=== PATIENT | female | born 1965 | race Caucasian/White ===

== ENCOUNTER → 2016-09-13 | Outpatient (CLI) | payer MEDICARE ==
[~2016-09-13] VITALS: Ht 154.9 cm; Wt 68.0 kg
[~2016-09-13] MED LIST: ALLEGRA ALLERG180 MG PO; BASAGLAR K100 UNIT/1 SC; LIPITOR10 MG PO; NOVOLOG 10100 UNITS/ SC; NOVOLOG100 UNIT/1 SC; XANAX0.25 MG PO; ZESTRIL10 MG PO
[2016-09-13 11:12] LABS: POINT-OF-CARE METER ID UU14174212
[2016-09-13 12:35] LABS: POINT-OF-CARE METER ID UU13113819; POINT-OF-CARE USER ID 515036437
== END | disposition home or self-care (01) ==
LOC: AMB 09:58
PROVIDERS: Internal Medicine Gastroenterology
PROC: 0DBE8ZX Excision of Large Intestine, Via Natural or Artificial Opening Endoscopic, Diagnostic (ICD-10-PCS; principal; 2016-09-13)
DX: R19.7 Diarrhea, unspecified (principal); R10.32 Left lower quadrant pain; K21.9 Gastro-esophageal reflux disease without esophagitis; F41.9 Anxiety disorder, unspecified; E11.9 Type 2 diabetes mellitus without complications; I10 Essential (primary) hypertension; E78.5 Hyperlipidemia, unspecified; M06.9 Rheumatoid arthritis, unspecified; Z79.4 Long term (current) use of insulin; Z82.3 Family history of stroke; Z83.3 Family history of diabetes mellitus
CPT/HCPCS: 82948; 88305; J2250